=== PATIENT | female | born 1960 | race Caucasian/White ===

== ENCOUNTER 2020-02-15 23:01 | Inpatient (IN) | payer BC, SELFPAY ==
[~2020-02-15] VITALS: Ht 160 cm; Wt 64.9 kg
[2020-02-15 23:25] VITALS: BP_SYST 154
[2020-02-16] MEDS ORDERED: AZIT500V2 PO (00:50)
[2020-02-16] MEDS ORDERED: ONDA4TAB5 PO (00:50)
[2020-02-16] MEDS ORDERED: ALBU2.5V7 INH (00:50)
[2020-02-16 01:38] LABS: BILIRUBIN,URINE NEGATIVE (NEGATIVE); BLOOD, URINE NEGATIVE (NEGATIVE); CLARITY/URINE CLEAR (CLEAR); COLOR,URINE ORANGE (YELLOW); GLUCOSE,URINE NEGATIVE (NEGATIVE); KETONES,URINE TRACE (NEGATIVE); LEUKOCYTE ESTERASE ,URINE 2+ (NEGATIVE); NITRITE, URINE NEGATIVE (NEGATIVE); PROTEIN URINE NEGATIVE (NEGATIVE)
[2020-02-16 01:39] LABS: WHITE BLOOD COUNT (AUTO) 3.5 K/uL (4.8-10.8)
[2020-02-16 01:45] LABS: HEMATOCRIT 35.9 % (36-48); HEMOGLOBIN 12.3 g/dL (12.0-16.0); MEAN CORPUSCULAR HEMOGLOBIN 32 pg (27-31); MEAN CORPUSCULAR HGB CONC 34 % (32-36); MEAN CORPUSCULAR VOLUME 93 fL (79.0-98.0); RED BLOOD CELL COUNT(AUTO) 3.88 MIL/uL (4.2-6.2); RED CELL DISTRIBUTION WIDTH 14.9 % (9.0-15.0)
[2020-02-16 01:46] LABS: CALCIUM 7.8 mg/dL (8.4-11.0); CREATININE 0.76 mg/dL (0.55-1.30); POTASSIUM 3.6 mmol/L (3.5-5.1)
[2020-02-16 01:48] LABS: BACTERIA,URINE FEW /HPF (None Seen); RBC,URINE 0-3 /HPF (0-3); WBC,URINE 20-50 /HPF (0-3)
[2020-02-16 01:49] LABS: INR 1.3 (0.8-1.2); PROTHROMBIN TIME 12.5 SECS (9.5-12.5)
[2020-02-16 01:51] LABS: C-REACTIVE PROTEIN QUANT 0.5 mg/dL (0-0.5); TOTAL BILIRUBIN 0.7 mg/dL (0.0-1.0)
[2020-02-16 01:54] LABS: PLATELET COUNT (AUTO) 34 K/uL (130-430)
[2020-02-16 02:09] LABS: ATYPICAL LYMPHOCYTES % 0 % (0-0); BAND % (MANUAL) 0 % (0-6); BASOPHILS % (MANUAL) 0 % (0-2); EOSINOPHILS % (MANUAL) 0 % (0-7); LYMPHOCYTES % (MANUAL) 35 % (20-46); MONOCYTES % (MANUAL) 11 % (0-11)
[2020-02-16] MEDS ORDERED: DEXAMETHASONE SOD PHOSPHATE 4 MG/ML VIAL ONE (02:09)
[2020-02-16] MEDS: NACL 0.9% 1,000 ML IV SCH ×3 (03:03→22:19)
[2020-02-16] MEDS ORDERED: chlordiazePOXIDE HCL 25 MG CAPSULE PO ONE (14:45)
[2020-02-16 15:00] LABS: HEMATOCRIT 34.2 % (36-48); HEMOGLOBIN 11.5 g/dL (12.0-16.0); MEAN CORPUSCULAR HEMOGLOBIN 31 pg (27-31); MEAN CORPUSCULAR HGB CONC 34 % (32-36); RED BLOOD CELL COUNT(AUTO) 3.74 MIL/uL (4.2-6.2); RED CELL DISTRIBUTION WIDTH 14.9 % (9.0-15.0); WHITE BLOOD COUNT (AUTO) 2.3 K/uL (4.8-10.8)
[2020-02-16] MEDS ORDERED: ASCORBIC ACID 500 MG TABLET PO ONE (15:00)
[2020-02-16] MEDS ORDERED: CHOLECALCIFEROL (VITAMIN D3) 2,000 UNIT TABLET PO ONE (15:00)
[2020-02-16] MEDS ORDERED: MULTIVITAMINS TAB 1 TABLET PO ONE (15:00)
[2020-02-16] MEDS ORDERED: FOLIC ACID 1 MG TABLET PO ONE (15:00)
[2020-02-16] MEDS ORDERED: DECADRON 4 MG TABLET PO SCH (15:00)
[2020-02-16] MEDS ORDERED: THIAMINE HCL 100 MG TABLET PO ONE (15:00)
[2020-02-16 15:07] LABS: CALCIUM 7.9 mg/dL (8.4-11.0); CREATININE 0.75 mg/dL (0.55-1.30); POTASSIUM 4.1 mmol/L (3.5-5.1)
[2020-02-16 15:09] LABS: PLATELET COUNT (AUTO) 36 K/uL (130-430)
[2020-02-16 15:10] LABS: MEAN CORPUSCULAR VOLUME 91 fL (79.0-98.0)
[2020-02-16 15:13] LABS: ALBUMIN 2.5 g/dL (3.4-4.8); TOTAL BILIRUBIN 0.5 mg/dL (0.0-1.0)
[2020-02-16 15:20] LABS: BAND % (MANUAL) 0 % (0-6); BASOPHILS % (MANUAL) 0 % (0-2); EOSINOPHILS % (MANUAL) 0 % (0-7); LYMPHOCYTES % (MANUAL) 25 % (20-46); MONOCYTES % (MANUAL) 5 % (0-11)
[2020-02-16] MEDS ORDERED: DECADRON 4 MG TABLET PO ONE (15:30)
[2020-02-16] MEDS ORDERED: DEXAMETHASONE 1 MG TABLET (DECADRON) PO ONE ×2 (16:00)
[2020-02-16] MEDS ORDERED: FAMOTIDINE 20 MG TABLET PO ONE (16:00)
[2020-02-16] MEDS ORDERED: chlordiazePOXIDE HCL 25 MG CAPSULE PO SCH ×2 (17:00)
[2020-02-16] MEDS ORDERED: DEXAMETHASONE 1 MG TABLET (DECADRON) PO SCH (21:00)
[2020-02-16] MEDS ORDERED: DECADRON 4 MG TABLET ONE (21:04)
[2020-02-16] MEDS: ACETAMINOPHEN 325 MG TABLET PO PRN (21:59)
[2020-02-16] MEDS: ASCORBIC ACID 500 MG TABLET PO SCH (22:00)
[2020-02-16] MEDS: MULTIVITAMINS TAB 1 TABLET PO SCH (22:02)
[2020-02-16] MEDS: FAMOTIDINE 20 MG TABLET PO SCH (22:04)
[2020-02-17 06:34] LABS: BASOPHILS % (AUTO) 0.1 % (0.0-2.0); HEMATOCRIT 31.6 % (36-48); HEMOGLOBIN 10.5 g/dL (12.0-16.0); LYMPHOCYTES # (AUTO) 0.4 K/uL (1.0-5.5); LYMPHOCYTES % (AUTO) 25.3 % (20.5-51.5); MEAN CORPUSCULAR HEMOGLOBIN 31 pg (27-31); MEAN CORPUSCULAR HGB CONC 33 % (32-36); MEAN CORPUSCULAR VOLUME 93 fL (79.0-98.0); MONOCYTES # (AUTO) 0.2 K/uL (0.0-1.0); MONOCYTES % (AUTO) 9.2 % (1.7-9.3); NEUTROPHILS # (AUTO) 1.2 K/uL (1.8-7.7); NEUTROPHILS % (AUTO) 65.4 % (40.0-70.0); RED BLOOD CELL COUNT(AUTO) 3.41 MIL/uL (4.2-6.2); RED CELL DISTRIBUTION WIDTH 14.2 % (9.0-15.0)
[2020-02-17 07:29] LABS: ALBUMIN 2.2 g/dL (3.4-4.8); CALCIUM 7.5 mg/dL (8.4-11.0); CREATININE 0.72 mg/dL (0.55-1.30); POTASSIUM 4.3 mmol/L (3.5-5.1); TOTAL BILIRUBIN 0.6 mg/dL (0.0-1.0)
[2020-02-17 08:04] LABS: WHITE BLOOD COUNT (AUTO) 1.8 K/uL (4.8-10.8)
[2020-02-17 08:05] LABS: PLATELET COUNT (AUTO) 32 K/uL (130-430)
[2020-02-17] MEDS: NACL 0.9% 1,000 ML IV SCH ×2 (08:53→22:21)
[2020-02-17] MEDS: FOLIC ACID 1 MG TABLET PO SCH (08:53)
[2020-02-17] MEDS: THIAMINE HCL 100 MG TABLET PO SCH (08:53)
[2020-02-17] MEDS: CHOLECALCIFEROL (VITAMIN D3) 2,000 UNIT TABLET PO SCH (08:54)
[2020-02-17] MEDS: ACETAMINOPHEN 325 MG TABLET PO PRN (18:07)
[2020-02-17] MEDS: FAMOTIDINE 20 MG TABLET PO SCH ×2 (22:19→23:00)
[2020-02-17] MEDS: MULTIVITAMINS TAB 1 TABLET PO SCH ×2 (22:19→23:01)
[2020-02-17] MEDS: ASCORBIC ACID 500 MG TABLET PO SCH ×2 (22:20→23:01)
[2020-02-18 06:10] LABS: BASOPHILS % (AUTO) 0.1 % (0.0-2.0); HEMATOCRIT 32.4 % (36-48); HEMOGLOBIN 10.7 g/dL (12.0-16.0); LYMPHOCYTES # (AUTO) 0.6 K/uL (1.0-5.5); LYMPHOCYTES % (AUTO) 18.9 % (20.5-51.5); MEAN CORPUSCULAR HEMOGLOBIN 30 pg (27-31); MEAN CORPUSCULAR HGB CONC 33 % (32-36); MEAN CORPUSCULAR VOLUME 92 fL (79.0-98.0); MONOCYTES # (AUTO) 0.3 K/uL (0.0-1.0); MONOCYTES % (AUTO) 9.7 % (1.7-9.3); NEUTROPHILS # (AUTO) 2.4 K/uL (1.8-7.7); NEUTROPHILS % (AUTO) 71.3 % (40.0-70.0); RED BLOOD CELL COUNT(AUTO) 3.51 MIL/uL (4.2-6.2); RED CELL DISTRIBUTION WIDTH 14.8 % (9.0-15.0); WHITE BLOOD COUNT (AUTO) 3.4 K/uL (4.8-10.8)
[2020-02-18 06:19] LABS: ALBUMIN 2.4 g/dL (3.4-4.8); CALCIUM 7.6 mg/dL (8.4-11.0); CREATININE 0.69 mg/dL (0.55-1.30); POTASSIUM 3.9 mmol/L (3.5-5.1); TOTAL BILIRUBIN 0.7 mg/dL (0.0-1.0)
[2020-02-18] MEDS: NACL 0.9% 1,000 ML IV SCH ×2 (06:40→16:12)
[2020-02-18 07:37] LABS: PLATELET COUNT (AUTO) 31 K/uL (130-430)
[2020-02-18 08:08] LABS: FOLATE (FOLIC ACID) 11.5 ng/mL (>3.0)
[2020-02-18] MEDS ORDERED: ACETAMINOPHEN 325 MG TABLET ONE ×2 (08:31→18:28)
[2020-02-18] MEDS: DECADRON 4 MG TABLET PO SCH (09:26)
[2020-02-18] MEDS: CHOLECALCIFEROL (VITAMIN D3) 2,000 UNIT TABLET PO SCH (09:27)
[2020-02-18] MEDS: FOLIC ACID 1 MG TABLET PO SCH (09:27)
[2020-02-18] MEDS: FAMOTIDINE 20 MG TABLET PO SCH ×2 (09:27→22:12)
[2020-02-18] MEDS: MULTIVITAMINS TAB 1 TABLET PO SCH ×2 (09:27→22:11)
[2020-02-18] MEDS: ASCORBIC ACID 500 MG TABLET PO SCH ×2 (09:27→22:12)
[2020-02-18] MEDS: THIAMINE HCL 100 MG TABLET PO SCH (09:27)
[2020-02-18] MEDS: ACETAMINOPHEN 325 MG TABLET PO PRN ×2 (09:28→22:13)
[2020-02-18 13:54] VITALS: BP_SYST 89
[2020-02-18] MEDS: ALBUTEROL SULFATE 0.083% 2.5 MG/3 ML VIAL.NEB INH PRN (18:10)
[2020-02-18] MEDS ORDERED: ALBUTEROL SULFATE 0.083% 2.5 MG/3 ML VIAL.NEB INH ONE (18:23)
[2020-02-18 20:27] VITALS: BP_SYST 124
[2020-02-19 01:34] VITALS: BP_SYST 135
[2020-02-19] MEDS: ACETAMINOPHEN 325 MG TABLET PO PRN (06:47)
[2020-02-19 07:12] LABS: BASOPHILS % (AUTO) 0.1 % (0.0-2.0); EOSINOPHILS % (AUTO) 0.1 % (0.0-4.0); HEMATOCRIT 38.1 % (36-48); HEMOGLOBIN 12.6 g/dL (12.0-16.0); LYMPHOCYTES % (AUTO) 20.5 % (20.5-51.5); MEAN CORPUSCULAR HEMOGLOBIN 30 pg (27-31); MEAN CORPUSCULAR HGB CONC 33 % (32-36); MEAN CORPUSCULAR VOLUME 92 fL (79.0-98.0); MONOCYTES # (AUTO) 0.3 K/uL (0.0-1.0); MONOCYTES % (AUTO) 6.7 % (1.7-9.3); NEUTROPHILS # (AUTO) 3.7 K/uL (1.8-7.7); NEUTROPHILS % (AUTO) 72.6 % (40.0-70.0); RED BLOOD CELL COUNT(AUTO) 4.16 MIL/uL (4.2-6.2); RED CELL DISTRIBUTION WIDTH 14.9 % (9.0-15.0)
[2020-02-19 07:48] LABS: ALBUMIN 2.8 g/dL (3.4-4.8); CALCIUM 8.2 mg/dL (8.4-11.0); CREATININE 0.8 mg/dL (0.55-1.30); POTASSIUM 3.6 mmol/L (3.5-5.1); TOTAL BILIRUBIN 0.9 mg/dL (0.0-1.0)
[2020-02-19 07:52] VITALS: BP_SYST 152
[2020-02-19] MEDS: FOLIC ACID 1 MG TABLET PO SCH (08:27)
[2020-02-19] MEDS: DECADRON 4 MG TABLET PO SCH (08:27)
[2020-02-19] MEDS: MULTIVITAMINS TAB 1 TABLET PO SCH ×3 (08:28→20:32)
[2020-02-19] MEDS: ASCORBIC ACID 500 MG TABLET PO SCH ×2 (08:28→20:32)
[2020-02-19] MEDS: CHOLECALCIFEROL (VITAMIN D3) 2,000 UNIT TABLET PO SCH (08:28)
[2020-02-19] MEDS: FAMOTIDINE 20 MG TABLET PO SCH ×2 (08:28→20:32)
[2020-02-19] MEDS: THIAMINE HCL 100 MG TABLET PO SCH (08:29)
[2020-02-19 08:44] LABS: PLATELET COUNT (AUTO) 40 K/uL (130-430)
[2020-02-19 12:00] VITALS: BP_SYST 125
[2020-02-19 16:00] VITALS: BP_SYST 120
[2020-02-19 20:10] VITALS: BP_SYST 113
[2020-02-19 23:50] VITALS: BP_SYST 106
[2020-02-20] MEDS: ALBUTEROL SULFATE 0.083% 2.5 MG/3 ML VIAL.NEB INH PRN (02:00)
[2020-02-20 07:16] LABS: HEMATOCRIT 32.5 % (36-48); LYMPHOCYTES # (AUTO) 0.5 K/uL (1.0-5.5); LYMPHOCYTES % (AUTO) 12.8 % (20.5-51.5); MEAN CORPUSCULAR HEMOGLOBIN 31 pg (27-31); MEAN CORPUSCULAR HGB CONC 34 % (32-36); MEAN CORPUSCULAR VOLUME 91 fL (79.0-98.0); MONOCYTES # (AUTO) 0.4 K/uL (0.0-1.0); NEUTROPHILS # (AUTO) 3.1 K/uL (1.8-7.7); NEUTROPHILS % (AUTO) 76.2 % (40.0-70.0); RED BLOOD CELL COUNT(AUTO) 3.57 MIL/uL (4.2-6.2); RED CELL DISTRIBUTION WIDTH 14.2 % (9.0-15.0)
[2020-02-20 07:46] LABS: CALCIUM 8.1 mg/dL (8.4-11.0); CREATININE 0.62 mg/dL (0.55-1.30); TOTAL BILIRUBIN 0.7 mg/dL (0.0-1.0)
[2020-02-20 07:51] LABS: PLATELET COUNT (AUTO) 36 K/uL (130-430)
[2020-02-20 08:00] VITALS: BP_SYST 109
[2020-02-20] MEDS: MULTIVITAMINS TAB 1 TABLET PO SCH ×3 (08:29→20:33)
[2020-02-20] MEDS: FAMOTIDINE 20 MG TABLET PO SCH ×2 (08:29→20:33)
[2020-02-20] MEDS: THIAMINE HCL 100 MG TABLET PO SCH (08:29)
[2020-02-20] MEDS: DECADRON 4 MG TABLET PO SCH (08:29)
[2020-02-20] MEDS: FOLIC ACID 1 MG TABLET PO SCH (08:29)
[2020-02-20] MEDS: CHOLECALCIFEROL (VITAMIN D3) 2,000 UNIT TABLET PO SCH (08:30)
[2020-02-20] MEDS: ASCORBIC ACID 500 MG TABLET PO SCH ×2 (08:30→20:33)
[2020-02-20 12:00] VITALS: BP_SYST 121
[2020-02-20] MEDS ORDERED: ALBUTEROL MDI INHALATION 8 GM INH INH PRN (13:30)
[2020-02-20 16:00] VITALS: BP_SYST 121
[2020-02-20 20:00] VITALS: BP_SYST 115
[2020-02-20] MEDS: QUEtiapine FUMARATE 25 MG TABLET PO SCH (20:33)
[2020-02-21] VITALS: BP_SYST 107
[2020-02-21] MEDS: DECADRON 4 MG TABLET PO SCH (09:17)
[2020-02-21] MEDS: ASCORBIC ACID 500 MG TABLET PO SCH ×2 (09:17→20:10)
[2020-02-21] MEDS: THIAMINE HCL 100 MG TABLET PO SCH (09:17)
[2020-02-21] MEDS: FAMOTIDINE 20 MG TABLET PO SCH ×2 (09:17→20:10)
[2020-02-21] MEDS: MULTIVITAMINS TAB 1 TABLET PO SCH ×2 (09:17→20:09)
[2020-02-21] MEDS: QUEtiapine FUMARATE 25 MG TABLET PO SCH ×2 (09:17→20:10)
[2020-02-21] MEDS: CHOLECALCIFEROL (VITAMIN D3) 2,000 UNIT TABLET PO SCH (09:17)
[2020-02-21] MEDS: FOLIC ACID 1 MG TABLET PO SCH (09:17)
[2020-02-21 17:50] VITALS: BP_SYST 107
[2020-02-21 18:42] VITALS: BP_SYST 128
[2020-02-21 20:00] VITALS: BP_SYST 110
[2020-02-22 00:01] VITALS: BP_SYST 104
[2020-02-22] MEDS: guaiFENesin/DEXTROMETHORPHAN 10 ML UDC PO PRN ×3 (03:07→20:50)
[2020-02-22 08:00] VITALS: BP_SYST 128
[2020-02-22] MEDS: DECADRON 4 MG TABLET PO SCH (08:35)
[2020-02-22] MEDS: MULTIVITAMINS TAB 1 TABLET PO SCH ×2 (08:36→21:00)
[2020-02-22] MEDS: QUEtiapine FUMARATE 25 MG TABLET PO SCH ×2 (08:36→21:00)
[2020-02-22] MEDS: FOLIC ACID 1 MG TABLET PO SCH (08:36)
[2020-02-22] MEDS: FAMOTIDINE 20 MG TABLET PO SCH ×2 (08:36→21:00)
[2020-02-22] MEDS: CHOLECALCIFEROL (VITAMIN D3) 2,000 UNIT TABLET PO SCH (08:36)
[2020-02-22] MEDS: THIAMINE HCL 100 MG TABLET PO SCH (08:48)
[2020-02-22] MEDS: ASCORBIC ACID 500 MG TABLET PO SCH ×2 (08:48→21:00)
[2020-02-22 08:55] LABS: BASOPHILS % (AUTO) 0.1 % (0.0-2.0); HEMATOCRIT 34.5 % (36-48); HEMOGLOBIN 11.5 g/dL (12.0-16.0); LYMPHOCYTES # (AUTO) 0.7 K/uL (1.0-5.5); LYMPHOCYTES % (AUTO) 11.9 % (20.5-51.5); MEAN CORPUSCULAR HEMOGLOBIN 30 pg (27-31); MEAN CORPUSCULAR HGB CONC 33 % (32-36); MEAN CORPUSCULAR VOLUME 91 fL (79.0-98.0); MONOCYTES # (AUTO) 0.8 K/uL (0.0-1.0); MONOCYTES % (AUTO) 13.3 % (1.7-9.3); NEUTROPHILS # (AUTO) 4.3 K/uL (1.8-7.7); NEUTROPHILS % (AUTO) 74.7 % (40.0-70.0); RED BLOOD CELL COUNT(AUTO) 3.81 MIL/uL (4.2-6.2); RED CELL DISTRIBUTION WIDTH 14.2 % (9.0-15.0); WHITE BLOOD COUNT (AUTO) 5.8 K/uL (4.8-10.8)
[2020-02-22 09:00] LABS: ALBUMIN 2.2 g/dL (3.4-4.8); CREATININE 0.7 mg/dL (0.55-1.30); POTASSIUM 4.3 mmol/L (3.5-5.1); TOTAL BILIRUBIN 0.6 mg/dL (0.0-1.0)
[2020-02-22] MEDS ORDERED: LOPERAMIDE HCL 2 MG CAPSULE PO PRN (11:45)
[2020-02-22] MEDS ORDERED: LOPERAMIDE HCL 2 MG CAPSULE PO ONE (11:45)
[2020-02-22 12:00] VITALS: BP_SYST 126
[2020-02-22 14:48] LABS: PLATELET COUNT (AUTO) 49 K/uL (130-430)
[2020-02-22 16:00] VITALS: BP_SYST 117
[2020-02-22 19:00] VITALS: BP_SYST 115
[2020-02-22 20:00] VITALS: BP_SYST 115
[2020-02-23] VITALS: BP_SYST 110
[2020-02-23] MEDS: ONDANSETRON HCL 4 MG/2 ML VIAL IVP PRN (02:34)
[2020-02-23 08:00] VITALS: BP_SYST 125
[2020-02-23 08:15] LABS: BASOPHILS % (AUTO) 0.1 % (0.0-2.0); HEMATOCRIT 35.8 % (36-48); HEMOGLOBIN 11.8 g/dL (12.0-16.0); LYMPHOCYTES # (AUTO) 0.9 K/uL (1.0-5.5); LYMPHOCYTES % (AUTO) 11.7 % (20.5-51.5); MEAN CORPUSCULAR HEMOGLOBIN 30 pg (27-31); MEAN CORPUSCULAR HGB CONC 33 % (32-36); MEAN CORPUSCULAR VOLUME 91 fL (79.0-98.0); MONOCYTES # (AUTO) 0.8 K/uL (0.0-1.0); MONOCYTES % (AUTO) 11.5 % (1.7-9.3); NEUTROPHILS # (AUTO) 5.7 K/uL (1.8-7.7); NEUTROPHILS % (AUTO) 76.7 % (40.0-70.0); PLATELET COUNT (AUTO) 52 K/uL (130-430); RED BLOOD CELL COUNT(AUTO) 3.94 MIL/uL (4.2-6.2); RED CELL DISTRIBUTION WIDTH 14.2 % (9.0-15.0); WHITE BLOOD COUNT (AUTO) 7.4 K/uL (4.8-10.8)
[2020-02-23 08:38] LABS: ALBUMIN 2.3 g/dL (3.4-4.8); CALCIUM 8.1 mg/dL (8.4-11.0); CREATININE 0.79 mg/dL (0.55-1.30); POTASSIUM 4.4 mmol/L (3.5-5.1); TOTAL BILIRUBIN 0.8 mg/dL (0.0-1.0)
[2020-02-23] MEDS: DECADRON 4 MG TABLET PO SCH (08:44)
[2020-02-23] MEDS: FOLIC ACID 1 MG TABLET PO SCH (08:44)
[2020-02-23] MEDS: QUEtiapine FUMARATE 25 MG TABLET PO SCH ×3 (08:45→21:26)
[2020-02-23] MEDS: MULTIVITAMINS TAB 1 TABLET PO SCH ×2 (08:45→21:26)
[2020-02-23] MEDS: CHOLECALCIFEROL (VITAMIN D3) 2,000 UNIT TABLET PO SCH (08:45)
[2020-02-23] MEDS: FAMOTIDINE 20 MG TABLET PO SCH ×2 (08:45→21:26)
[2020-02-23] MEDS: ASCORBIC ACID 500 MG TABLET PO SCH ×2 (08:45→21:26)
[2020-02-23] MEDS: THIAMINE HCL 100 MG TABLET PO SCH (08:59)
[2020-02-23 12:00] VITALS: BP_SYST 116
[2020-02-23 16:00] VITALS: BP_SYST 106
[2020-02-23 19:00] VITALS: BP_SYST 138
[2020-02-23 20:00] VITALS: BP_SYST 138
[2020-02-24] VITALS (7 sets, daily range): BP systolic 96–135
[2020-02-24] MEDS: ONDANSETRON HCL 4 MG/2 ML VIAL IVP PRN (02:10)
[2020-02-24] MEDS: ACETAMINOPHEN 325 MG TABLET PO PRN (02:11)
[2020-02-24] MEDS: CHOLECALCIFEROL (VITAMIN D3) 2,000 UNIT TABLET PO SCH (07:59)
[2020-02-24] MEDS: THIAMINE HCL 100 MG TABLET PO SCH (07:59)
[2020-02-24] MEDS: DECADRON 4 MG TABLET PO SCH (08:00)
[2020-02-24] MEDS: MULTIVITAMINS TAB 1 TABLET PO SCH ×2 (08:00→21:01)
[2020-02-24] MEDS: FAMOTIDINE 20 MG TABLET PO SCH ×2 (08:01→21:01)
[2020-02-24] MEDS: QUEtiapine FUMARATE 25 MG TABLET PO SCH ×3 (08:01→21:01)
[2020-02-24] MEDS: FOLIC ACID 1 MG TABLET PO SCH (08:01)
[2020-02-24] MEDS: ASCORBIC ACID 500 MG TABLET PO SCH ×2 (08:01→21:01)
[2020-02-24] MEDS ORDERED: VITD2000 PO (14:05)
[2020-02-24] MEDS ORDERED: ASCO500T20 PO (14:05)
[2020-02-24] MEDS ORDERED: FOLI-43 PO (14:07)
[2020-02-24] MEDS ORDERED: SER25 PO (14:08)
[2020-02-24] MEDS ORDERED: THIA100T73 PO (14:09)
[2020-02-24] MEDS ORDERED: ZINC220T4 PO (14:09)
[2020-02-24] MEDS ORDERED: DEC4 PO (14:10)
[2020-02-24] MEDS ORDERED: DEC1 PO (14:11)
[2020-02-25 00:18] VITALS: BP_SYST 122
[2020-02-25] MEDS: THIAMINE HCL 100 MG TABLET PO SCH (07:50)
[2020-02-25] MEDS: QUEtiapine FUMARATE 25 MG TABLET PO SCH (07:50)
[2020-02-25] MEDS: MULTIVITAMINS TAB 1 TABLET PO SCH (07:51)
[2020-02-25] MEDS: DECADRON 4 MG TABLET PO SCH (07:51)
[2020-02-25] MEDS: FOLIC ACID 1 MG TABLET PO SCH (07:51)
[2020-02-25] MEDS: ASCORBIC ACID 500 MG TABLET PO SCH (07:51)
[2020-02-25] MEDS: CHOLECALCIFEROL (VITAMIN D3) 2,000 UNIT TABLET PO SCH (07:51)
[2020-02-25] MEDS: FAMOTIDINE 20 MG TABLET PO SCH (07:52)
[2020-02-25 08:00] VITALS: BP_SYST 105
[2020-02-25 11:29] VITALS: BP_SYST 119
[2020-02-25 12:00] VITALS: BP_SYST 119
== END 2020-02-25 13:05 | disposition home or self-care (01) | DRG 720 ==
LOC: SED 23:01 → STU 02-16 01:38 → SMU 02-20 22:21
PROVIDERS: ADMIT Internal Medicine; ATTEND Internal Medicine
DX: A41.9 Sepsis, unspecified organism (principal); U07.1 COVID-19; J96.01 Acute respiratory failure with hypoxia; D61.818 Other pancytopenia; E44.0 Moderate protein-calorie malnutrition; N39.0 Urinary tract infection, site not specified; K70.10 Alcoholic hepatitis without ascites; D69.6 Thrombocytopenia, unspecified; D68.9 Coagulation defect, unspecified; J12.89 Other viral pneumonia; K70.30 Alcoholic cirrhosis of liver without ascites; F10.20 Alcohol dependence, uncomplicated; K52.9 Noninfective gastroenteritis and colitis, unspecified; F41.9 Anxiety disorder, unspecified; F32.9 Major depressive disorder, single episode, unspecified; Z59.0 Homelessness; Z71.41 Alcohol abuse counseling and surveillance of alcoholic; Z68.25 Body mass index [BMI] 25.0-25.9, adult; Z79.51 Long term (current) use of inhaled steroids
CPT/HCPCS: 36415; 36600; 71045; 80053; 81000-TC; 82140-TC; 82550-TC; 82607; 82728; 82746; 82803-TC; 83605; 83615-TC; 83735-TC; 83880; 84484; 85007; 85025; 85027; 85044-TC; 85379; 85384-TC; 85610-TC; 85730-TC; 86140; 86886; 86900; 86901; 87040-TC; 87086; 93005; 94640; 94760; 99291; G0378; J1100; J2405; J7613; J8540; U0003-CS

== ENCOUNTER 2022-09-23 02:22 | Inpatient (IN) | payer BC, MEDICAID ==
[~2022-09-23] VITALS: Ht 160 cm; Wt 54.4 kg
[~2022-09-23 02:22] MED LIST: ALBU2.5V7 INH; ASCO500T20 PO; AZIT500V2 PO; DEC1 PO; DEC4 PO; FOLI-43 PO; ONDA4TAB5 PO; SER25 PO; THIA100T73 PO; VITD2000 PO; ZINC220T4 PO
[2022-09-23 02:37] VITALS: BP_SYST 166
[2022-09-23] MEDS ORDERED: ONDANSETRON HCL 4 MG/2 ML VIAL IVP ONE (02:45)
[2022-09-23] MEDS ORDERED: MORPHINE 2 MG/ML INJ. SYRINGE IVP ONE (02:45)
[2022-09-23] MEDS ORDERED: NACL 0.9% 1,000 ML IV ONE (02:45)
[2022-09-23] MEDS ORDERED: PANTOPRAZOLE SODIUM 80 MG in NS 100 ML IV ONE (02:45)
[2022-09-23] MEDS ORDERED: PANTOPRAZOLE SODIUM 40 MG/VIAL (PROTONIX) ONE (02:49)
[2022-09-23 03:09] LABS: BASOPHILS % (AUTO) 0.8 % (0.0-2.0); EOSINOPHILS # (AUTO) 0.1 K/uL (0.0-0.4); EOSINOPHILS % (AUTO) 3.5 % (0.0-4.0); HEMATOCRIT 29.8 % (36-48); HEMOGLOBIN 9.6 g/dL (12.0-16.0); LYMPHOCYTES # (AUTO) 0.9 K/uL (1.0-5.5); LYMPHOCYTES % (AUTO) 31.2 % (20.5-51.5); MEAN CORPUSCULAR HEMOGLOBIN 23 pg (27-31); MEAN CORPUSCULAR HGB CONC 32 % (32-36); MEAN CORPUSCULAR VOLUME 72 fL (79.0-98.0); MONOCYTES # (AUTO) 0.3 K/uL (0.0-1.0); MONOCYTES % (AUTO) 9.6 % (1.7-9.3); NEUTROPHILS # (AUTO) 1.7 K/uL (1.8-7.7); NEUTROPHILS % (AUTO) 54.9 % (40.0-70.0); RED BLOOD CELL COUNT(AUTO) 4.15 MIL/uL (4.2-6.2); RED CELL DISTRIBUTION WIDTH 18.6 % (9.0-15.0)
[2022-09-23 03:23] LABS: ANION GAP 9 (5-15); CALCIUM 8.7 mg/dL (8.4-11.0); CHLORIDE 107 mmol/L (98-107); CREATININE 0.69 mg/dL (0.55-1.30); GLUCOSE 140 mg/dL (70-99); UREA NITROGEN, BLOOD 21 mg/dL (8-21)
[2022-09-23 03:25] LABS: INR 1.3 (0.8-1.2); PROTHROMBIN TIME 13.5 SECS (9.5-12.5)
[2022-09-23 03:29] LABS: ALANINE AMINOTRANSFERASE 60 U/L (12-78); ALBUMIN 3.1 g/dL (3.4-4.8); ASPARTATE AMINOTRANSFERASE 86 U/L (10-37); LIPASE 288 U/L (73-393); TOTAL BILIRUBIN 0.8 mg/dL (0.0-1.0)
[2022-09-23 03:30] LABS: PLATELET COUNT (AUTO) 36 K/uL (130-430)
[2022-09-23 03:31] LABS: GFR AFRICAN AMERICAN 112 mL/min (>90)
[2022-09-23 03:55] LABS: CKMB RELATIVE INDEX 0.8 (0.0-2.9); CREATINE KINASE MB 2.3 ng/mL (0-3.6)
[2022-09-23] MEDS ORDERED: OCTREOTIDE ACETATE 100 MCG/ML AMP IVP ONE (05:00)
[2022-09-23] MEDS ORDERED: OCTREOTIDE ACETATE 1,250 MCG in NS 248.75 ML IV ONE (05:00)
[2022-09-23 05:09] LABS: BILIRUBIN,URINE NEGATIVE (NEGATIVE); BLOOD, URINE NEGATIVE (NEGATIVE); COLOR,URINE YELLOW (YELLOW); GLUCOSE,URINE NEGATIVE (NEGATIVE); KETONES,URINE NEGATIVE (NEGATIVE); LEUKOCYTE ESTERASE ,URINE TRACE (NEGATIVE); NITRITE, URINE NEGATIVE (NEGATIVE); PROTEIN URINE NEGATIVE (NEGATIVE); UROBILINOGEN,URINE 0.2 (0.2-1.0)
[2022-09-23 05:12] LABS: CLARITY/URINE HAZY (CLEAR)
[2022-09-23] MEDS: NACL 0.9% 1,000 ML IV SCH ×2 (05:15→21:13)
[2022-09-23] MEDS ORDERED: ONDANSETRON HCL 4 MG/2 ML VIAL IVP PRN ×2 (05:15→08:00)
[2022-09-23 05:18] LABS: BACTERIA,URINE FEW /HPF (None Seen); RBC,URINE 0-3 /HPF (0-3)
[2022-09-23] MEDS ORDERED: MAGNESIUM SULFATE 50 ML IV PRN (08:00)
[2022-09-23] MEDS ORDERED: ZOLPIDEM TARTRATE 5 MG TABLET PO PRN (08:00)
[2022-09-23] MEDS ORDERED: LORazepam 2 MG/ML VIAL IVP PRN (08:00)
[2022-09-23] MEDS ORDERED: POTASSIUM CHLORIDE 20 MEQ TAB.PRT.SR PO PRN (08:00)
[2022-09-23] MEDS ORDERED: DOCUSATE SODIUM 100 MG CAPSULE PO PRN (08:00)
[2022-09-23] MEDS ORDERED: ACETAMINOPHEN 325 MG TABLET PO PRN (08:00)
[2022-09-23] MEDS ORDERED: NALOXONE HCL 0.4 MG/ML AMP (NARCAN) IVP PRN ×2 (08:00)
[2022-09-23] MEDS ORDERED: MORPHINE 2 MG/ML INJ. SYRINGE IVP PRN ×2 (08:00)
[2022-09-23] MEDS ORDERED: METOCLOPRAMIDE HCL 10 MG/2 ML VIAL IVP ONE (08:30)
[2022-09-23] MEDS: PANTOPRAZOLE SODIUM 40 MG/VIAL (PROTONIX) IVP SCH ×2 (09:04→21:13)
[2022-09-23] MEDS: QUEtiapine FUMARATE 25 MG TABLET PO SCH ×3 (09:04→21:00)
[2022-09-23 10:57] VITALS: BP_SYST 116
[2022-09-23] MEDS ORDERED: MIDAZOLAM HCL 5 MG/5 ML VIAL ONE (11:42)
[2022-09-23] MEDS ORDERED: SIMETHICONE 40 MG/0.6 ML ML ONE (11:42)
[2022-09-23] MEDS ORDERED: fentaNYL CITRATE/PF 100 MCG/2 ML AMP ONE (11:42)
[2022-09-23 12:00] VITALS: BP_SYST 109
[2022-09-23 15:52] VITALS: BP_SYST 109
[2022-09-23 16:00] VITALS: BP_SYST 109
[2022-09-23 20:00] VITALS: BP_SYST 117
[2022-09-24 01:09] VITALS: BP_SYST 139
[2022-09-24] MEDS ORDERED: OCTREOTIDE ACETATE 1,250 MCG in NS 248.75 ML IV SCH (05:00)
[2022-09-24] MEDS: QUEtiapine FUMARATE 25 MG TABLET PO SCH ×3 (09:08→21:31)
[2022-09-24] MEDS: PANTOPRAZOLE SODIUM 40 MG/VIAL (PROTONIX) IVP SCH ×2 (09:09→21:31)
[2022-09-24] MEDS: NACL 0.9% 1,000 ML IV SCH (09:51)
[2022-09-24 10:03] LABS: BASOPHILS % (AUTO) 0.6 % (0.0-2.0); EOSINOPHILS # (AUTO) 0.1 K/uL (0.0-0.4); EOSINOPHILS % (AUTO) 2.9 % (0.0-4.0); HEMATOCRIT 27.2 % (36-48); HEMOGLOBIN 8.6 g/dL (12.0-16.0); LYMPHOCYTES # (AUTO) 0.8 K/uL (1.0-5.5); MEAN CORPUSCULAR HEMOGLOBIN 23 pg (27-31); MEAN CORPUSCULAR HGB CONC 32 % (32-36); MEAN CORPUSCULAR VOLUME 74 fL (79.0-98.0); MONOCYTES # (AUTO) 0.2 K/uL (0.0-1.0); MONOCYTES % (AUTO) 9.1 % (1.7-9.3); NEUTROPHILS # (AUTO) 1.5 K/uL (1.8-7.7); NEUTROPHILS % (AUTO) 56.4 % (40.0-70.0); RED BLOOD CELL COUNT(AUTO) 3.69 MIL/uL (4.2-6.2); RED CELL DISTRIBUTION WIDTH 18.9 % (9.0-15.0); WHITE BLOOD COUNT (AUTO) 2.7 K/uL (4.8-10.8)
[2022-09-24 10:20] LABS: CALCIUM 7.7 mg/dL (8.4-11.0); CREATININE 0.69 mg/dL (0.55-1.30)
[2022-09-24 11:40] VITALS: BP_SYST 144
[2022-09-24 14:41] LABS: PLATELET COUNT (AUTO) 39 K/uL (130-430)
[2022-09-24 15:10] VITALS: BP_SYST 145
[2022-09-24 20:00] VITALS: BP_SYST 150
[2022-09-24] MEDS: PROPRANOLOL HCL 10 MG TABLET (INDERAL) PO SCH (21:31)
[2022-09-25] VITALS: BP_SYST 138
[2022-09-25] MEDS: NACL 0.9% 1,000 ML IV SCH ×2 (05:33→15:03)
[2022-09-25 08:00] VITALS: BP_SYST 141
[2022-09-25] MEDS: PANTOPRAZOLE SODIUM 40 MG/VIAL (PROTONIX) IVP SCH ×2 (08:42→20:55)
[2022-09-25] MEDS: MUPIROCIN 2% TOPICAL OINTMENT 22 GM NS SCH ×2 (08:42→20:56)
[2022-09-25] MEDS: PROPRANOLOL HCL 10 MG TABLET (INDERAL) PO SCH ×2 (08:43→20:56)
[2022-09-25] MEDS: QUEtiapine FUMARATE 25 MG TABLET PO SCH ×3 (08:43→20:57)
[2022-09-25 09:23] LABS: BASOPHILS % (AUTO) 0.3 % (0.0-2.0); EOSINOPHILS # (AUTO) 0.1 K/uL (0.0-0.4); EOSINOPHILS % (AUTO) 3.4 % (0.0-4.0); HEMATOCRIT 26.8 % (36-48); HEMOGLOBIN 8.7 g/dL (12.0-16.0); LYMPHOCYTES # (AUTO) 0.7 K/uL (1.0-5.5); LYMPHOCYTES % (AUTO) 17.3 % (20.5-51.5); MEAN CORPUSCULAR HEMOGLOBIN 23 pg (27-31); MEAN CORPUSCULAR HGB CONC 32 % (32-36); MEAN CORPUSCULAR VOLUME 72 fL (79.0-98.0); MONOCYTES # (AUTO) 0.4 K/uL (0.0-1.0); MONOCYTES % (AUTO) 10.2 % (1.7-9.3); NEUTROPHILS # (AUTO) 2.6 K/uL (1.8-7.7); NEUTROPHILS % (AUTO) 68.8 % (40.0-70.0); RED BLOOD CELL COUNT(AUTO) 3.73 MIL/uL (4.2-6.2); RED CELL DISTRIBUTION WIDTH 18.5 % (9.0-15.0)
[2022-09-25 09:30] LABS: WHITE BLOOD COUNT (AUTO) 3.9 K/uL (4.8-10.8)
[2022-09-25 11:39] LABS: ALBUMIN 2.5 g/dL (3.4-4.8); CALCIUM 7.7 mg/dL (8.4-11.0); CREATININE 0.61 mg/dL (0.55-1.30)
[2022-09-25 11:48] VITALS: BP_SYST 135
[2022-09-25 15:08] LABS: PLATELET COUNT (AUTO) 52 K/uL (130-430)
[2022-09-25] MEDS ORDERED: DIATR MEGLU/DIATRIZ SOD 30 ML SOLUTION PO ONE (15:12)
[2022-09-25] MEDS: cefTRIAXone 1 GM in D5W 50 ML IV SCH (15:40)
[2022-09-25 17:33] VITALS: BP_SYST 130
[2022-09-25 20:15] VITALS: BP_SYST 125
[2022-09-25] MEDS: ACETAMINOPHEN 325 MG TABLET PO PRN (20:57)
[2022-09-26 00:48] VITALS: BP_SYST 97
[2022-09-26] MEDS: NACL 0.9% 1,000 ML IV SCH ×2 (04:45→08:43)
[2022-09-26 07:03] LABS: BASOPHILS % (AUTO) 0.5 % (0.0-2.0); EOSINOPHILS # (AUTO) 0.1 K/uL (0.0-0.4); EOSINOPHILS % (AUTO) 3.4 % (0.0-4.0); HEMATOCRIT 27.7 % (36-48); HEMOGLOBIN 9.1 g/dL (12.0-16.0); LYMPHOCYTES # (AUTO) 0.8 K/uL (1.0-5.5); LYMPHOCYTES % (AUTO) 26.5 % (20.5-51.5); MEAN CORPUSCULAR HEMOGLOBIN 24 pg (27-31); MEAN CORPUSCULAR HGB CONC 33 % (32-36); MEAN CORPUSCULAR VOLUME 72 fL (79.0-98.0); MONOCYTES # (AUTO) 0.4 K/uL (0.0-1.0); MONOCYTES % (AUTO) 12.9 % (1.7-9.3); NEUTROPHILS # (AUTO) 1.6 K/uL (1.8-7.7); NEUTROPHILS % (AUTO) 56.7 % (40.0-70.0); RED BLOOD CELL COUNT(AUTO) 3.87 MIL/uL (4.2-6.2); RED CELL DISTRIBUTION WIDTH 19.3 % (9.0-15.0); WHITE BLOOD COUNT (AUTO) 2.9 K/uL (4.8-10.8)
[2022-09-26 07:35] LABS: CALCIUM 7.5 mg/dL (8.4-11.0); CREATININE 0.68 mg/dL (0.55-1.30)
[2022-09-26 08:17] VITALS: BP_SYST 134
[2022-09-26 08:20] LABS: PLATELET COUNT (AUTO) 38 K/uL (130-430)
[2022-09-26] MEDS: MUPIROCIN 2% TOPICAL OINTMENT 22 GM NS SCH (08:43)
[2022-09-26] MEDS: PANTOPRAZOLE SODIUM 40 MG/VIAL (PROTONIX) IVP SCH (08:43)
[2022-09-26] MEDS: PROPRANOLOL HCL 10 MG TABLET (INDERAL) PO SCH (08:44)
[2022-09-26] MEDS: QUEtiapine FUMARATE 25 MG TABLET PO SCH ×2 (08:44→15:05)
[2022-09-26] MEDS ORDERED: PRO40 PO (09:08)
[2022-09-26] MEDS ORDERED: METR-154 PO (09:10)
[2022-09-26] MEDS: ACETAMINOPHEN 325 MG TABLET PO PRN (10:32)
[2022-09-26 11:43] VITALS: BP_SYST 101
[2022-09-26] MEDS: cefTRIAXone 1 GM in D5W 50 ML IV SCH (15:05)
[2022-09-26 16:45] VITALS: BP_SYST 104
[2022-09-26 16:46] VITALS: BP_SYST 104
== END 2022-09-26 19:10 | disposition home or self-care (01) | DRG 241 ==
LOC: SED 02:22 → SMU 05:12 → STU 09:19
PROVIDERS: ADMIT General Practice; ATTEND General Practice
PROC: 30233N1 Transfusion of Nonautologous Red Blood Cells into Peripheral Vein, Percutaneous Approach (ICD-10-PCS; 2022-09-23)
PROC: 06L38CZ Occlusion of Esophageal Vein with Extraluminal Device, Via Natural or Artificial Opening Endoscopic (ICD-10-PCS; principal; 2022-09-23 11:30)
DX: K29.01 Acute gastritis with bleeding (principal); R65.11 Systemic inflammatory response syndrome (SIRS) of non-infectious origin with acute organ dysfunction; D61.818 Other pancytopenia; E44.0 Moderate protein-calorie malnutrition; E87.20 Acidosis, unspecified; D63.8 Anemia in other chronic diseases classified elsewhere; K76.6 Portal hypertension; N30.90 Cystitis, unspecified without hematuria; I85.00 Esophageal varices without bleeding; K70.30 Alcoholic cirrhosis of liver without ascites; F10.10 Alcohol abuse, uncomplicated; B19.20 Unspecified viral hepatitis C without hepatic coma; K42.9 Umbilical hernia without obstruction or gangrene; E55.9 Vitamin D deficiency, unspecified; K31.89 Other diseases of stomach and duodenum; Z20.822 Contact with and (suspected) exposure to COVID-19; K57.90 Diverticulosis of intestine, part unspecified, without perforation or abscess without bleeding; Z68.21 Body mass index [BMI] 21.0-21.9, adult
CPT/HCPCS: 36415; 43244; 70450-TC; 71045; 76376; 80048; 80053; 81000; 82140; 82550; 82553; 83037; 83605; 83690; 83735; 83880; 84484; 85025; 85610-TC; 85730-TC; 86886; 86900; 86901; 87040; 87081; 87086; 93005; 96365; 96368; 96375; 99285; C9113; G0378; G0482; J0696; J2250; J2270; J2354; J2405; J2765; J3010; J7050; J7060; P9034; Q9964; Q9967

== ENCOUNTER 2022-10-31 13:11 | Emergency (ER) | payer MEDICAID ==
[~2022-10-31] VITALS: Ht 160 cm; Wt 54.4 kg
[~2022-10-31 13:11] MED LIST changes: -ALBU2.5V7 INH; -ASCO500T20 PO; -AZIT500V2 PO; +METR-154 PO; +PRO40 PO; -THIA100T73 PO; -ZINC220T4 PO
[2022-10-31 13:37] VITALS: BP_SYST 144
--- NOTE | 2022-10-31 14:58 | NUR ---
Placed in room 7 . Placed on ekg monitor, blood pressure machine and pulse oximeter. To gown for exam. Side rails up. Report given to
--- NOTE | 2022-10-31 15:00 | NUR ---
EDP SEEN PATIENT WITH ORDER GUANACO OUT.
[2022-10-31 15:11] LABS: BILIRUBIN,URINE NEGATIVE (NEGATIVE); BLOOD, URINE NEGATIVE (NEGATIVE); CLARITY/URINE CLEAR (CLEAR); COLOR,URINE YELLOW (YELLOW); GLUCOSE,URINE NEGATIVE (NEGATIVE); KETONES,URINE TRACE (NEGATIVE); LEUKOCYTE ESTERASE ,URINE TRACE (NEGATIVE); NITRITE, URINE POSITIVE (NEGATIVE); PH,URINE 5.5 (5.0-8.0); PROTEIN URINE NEGATIVE (NEGATIVE); UROBILINOGEN,URINE 0.2 (0.2-1.0)
[2022-10-31 15:19] LABS: BACTERIA,URINE MODERATE /HPF (None Seen); MUCUS,URINE 2+ /LPF (None Seen); RBC,URINE 0-3 /HPF (0-3)
[2022-10-31 15:24] LABS: BARBITURATE, URINE NEGATIVE (NEG <=200); BENZODIAZEPINE, URINE NEGATIVE (NEG <=150); CANNABINOID, URINE NEGATIVE (NEG <=50); COCAINE, URINE NEGATIVE (NEG <=150); METHAMPHETAMINES SCREEN,URINE POSITIVE (NEG <=500); OPIATE, URINE NEGATIVE (NEG <=100); PHENCYCLIDINE SCREEN,URINE NEGATIVE (NEG <=25); UR TRICYCLIC ANTIDEPRESSANTS NEGATIVE (NEG <=300); URINE AMPHETAMINE POSITIVE (NEG <=500); URINE METHADONE NEGATIVE (NEG <=200); URINE OXYCODONE SCREEN NEGATIVE (NEG <=100); URINE PROPOXYPHENE SCREEN NEGATIVE (NEG <=300)
--- NOTE | 2022-10-31 15:35 | NUR ---
PATIENT ASSISTED ON BEDPAN, URINE COLLECTED AND SEND TO LAB.
--- NOTE | 2022-10-31 16:24 | NUR ---
REPORT GIVEN TO LALY LACKEY.
[2022-10-31] MEDS ORDERED: cefTRIAXone 1 GM in LIDOCAINE 1%, 20 ML MDV 2.1 ML IM ONE (16:30)
[2022-10-31] MEDS ORDERED: NITR-85 PO (16:33)
[2022-10-31 16:48] LABS: BASOPHILS % (AUTO) 0.7 % (0.0-2.0); EOSINOPHILS # (AUTO) 0.1 K/uL (0.0-0.4); EOSINOPHILS % (AUTO) 3.1 % (0.0-4.0); HEMATOCRIT 26.5 % (36-48); HEMOGLOBIN 8.5 g/dL (12.0-16.0); LYMPHOCYTES # (AUTO) 0.7 K/uL (1.0-5.5); LYMPHOCYTES % (AUTO) 30.8 % (20.5-51.5); MEAN CORPUSCULAR HEMOGLOBIN 23 pg (27-31); MEAN CORPUSCULAR HGB CONC 32 % (32-36); MEAN CORPUSCULAR VOLUME 71 fL (79.0-98.0); MONOCYTES # (AUTO) 0.2 K/uL (0.0-1.0); MONOCYTES % (AUTO) 9.3 % (1.7-9.3); NEUTROPHILS # (AUTO) 1.2 K/uL (1.8-7.7); NEUTROPHILS % (AUTO) 56.1 % (40.0-70.0); RED BLOOD CELL COUNT(AUTO) 3.72 MIL/uL (4.2-6.2); RED CELL DISTRIBUTION WIDTH 17.5 % (9.0-15.0)
--- NOTE | 2022-10-31 16:48 | NUR ---
Patient given written and verbal discharge instructions and verbalizes understanding. ER MD discussed with patient the results and treatment provided. Patient in stable condition. ID arm band removed. IV catheter removed intact and dressing applied, no active bleeding. Rx of Macrobid given. Patient educated on pain management and to follow up with PMD. Opportunity for questions provided and answered. Medication side effect fact sheet provided.
[2022-10-31 16:59] LABS: ALBUMIN 2.8 g/dL (3.4-4.8); CREATININE 0.78 mg/dL (0.55-1.30); TOTAL BILIRUBIN 0.7 mg/dL (0.0-1.0)
[2022-10-31 17:05] LABS: PLATELET COUNT (AUTO) 39 K/uL (130-430); WHITE BLOOD COUNT (AUTO) 2.2 K/uL (4.8-10.8)
== END 2022-10-31 16:47 | disposition home or self-care (01) ==
LOC: SED 13:11
DX: N39.0 Urinary tract infection, site not specified (principal); T43.621A Poisoning by amphetamines, accidental (unintentional), initial encounter; R22.43 Localized swelling, mass and lump, lower limb, bilateral; Z79.899 Other long term (current) drug therapy; Y92.89 Other specified places as the place of occurrence of the external cause
CPT/HCPCS: 99285; 93970; 80307; 80053; 82140; 85025; 85379; 87040; 87086; 36415; 96372; 83605; 81000; J0696; J2001